=== PATIENT | female | born 1975 | race Two or more races ===

== ENCOUNTER 2019-01-22 13:37 | Outpatient (CLI) | payer OTHER | END 2019-01-22 13:53 | disposition home or self-care (01) | LOC: RAD 13:37 | DX: J84.112 Idiopathic pulmonary fibrosis (principal) ==

== ENCOUNTER → 2019-02-23 | Outpatient (CLI) | payer OTHER | END | disposition home or self-care (01) | LOC: NUCLEAR 10:22 | DX: R00.2 Palpitations (principal); R01.1 Cardiac murmur, unspecified ==

== ENCOUNTER 2019-07-19 20:58 | Emergency (ER) | payer OTHER ==
[~2019-07-19] VITALS: Ht 152.4 cm; Wt 77.1 kg
== END 2019-07-19 23:58 ==
LOC: ER 20:58
DX: M54.5 Low back pain (principal); R06.02 Shortness of breath